=== PATIENT | male | born 1950 | race African-American/Black ===

== ENCOUNTER 2017-07-16 20:36 | Emergency (ER) | payer MEDICARE, OTHER ==
[~2017-07-16] VITALS: Ht 180.3 cm; Wt 68.0 kg
[~2017-07-16 20:36] MED LIST: NKM
[2017-07-16] MEDS ORDERED: Thiamine HCl 100 MG in D5W 55 ML IVPB ONE (21:00)
[2017-07-16] MEDS ORDERED: Thiamine HCl 100mg/ml 2 ml Inj ONE (21:31)
[2017-07-16 21:36] LABS: BASOPHILS % (AUTO) 1.5 % (0.0-2.0); LYMPHOCYTES % (AUTO) 34.1 % (20.0-45.0); MEAN CORPUSCULAR HEMOGLOBIN 36.9 PG (27.0-31.0); MEAN CORPUSCULAR VOLUME 109 FL (80-99); MEAN PLATELET VOLUME 4.8 FL (6.5-10.1); MONOCYTES % (AUTO) 17.5 % (1.0-10.0); PLATELET COUNT 215 K/UL (150-450); RED BLOOD COUNT 3.52 M/UL (4.70-6.10); RED CELL DISTRIBUTION WIDTH 11.7 % (11.6-14.8); WHITE BLOOD COUNT 4.4 K/UL (4.8-10.8)
--- NOTE | 2017-07-16 21:58 | Emergency Room Report ---
History of Present Illness General Chief Complaint: Pain Source: Patient (Rudi Alvarez M.D.) Present Illness HPI 67 yo male with unknown pmhx p/w alcohol intoxication. Patient admits to drinking alcohol, cannot quantify amount. Denies other drug use. Currently denying any complaints. Denies history of trauma, headache, chest pain , sob, abd pain. (Rudi Alvarez M.D.) Allergies: Coded Allergies: No Known Allergies (Unverified , 07/16/17) Patient History Past Medical History: see triage record Past Surgical History: none Pertinent Family History: none Reviewed Nursing Documentation: PMH: Agreed, PSxH: Agreed (Rudi Alvarez M.D. ) Nursing Documentation-PMH Past Medical History: No Stated History (Rudi Alvarez M.D.) Review of Systems All Other Systems: negative except mentioned in HPI (Rudi Alvarez M.D.) Physical Exam Vital Signs Date Time Temp Pulse Resp B/P (MAP) Pulse Ox O2 Delivery O2 Flow Rate FiO2 07/16/17 20:21 97.5 92 16 84/59 94 Room Air Sp02 EP Interpretation: reviewed, normal General Appearance: alert, other - Middle aged male, not in acute distress, intoxicated, however conversing in speaking complete sentences not appear to be in pain. Head: normocephalic, atraumatic - No hematoma or ecchymosis Eyes: bilateral eye normal inspection, bilateral eye PERRL, bilateral eye EOMI ENT: normal ENT inspection, normal pharynx, normal voice, moist mucus membranes Neck: normal inspection, full range of motion, supple Respiratory: normal inspection, lungs clear, normal breath sounds, no respiratory distress, no retraction, no wheezing, speaking full sentences, chest symmetrical Cardiovascular #1: normal inspection, regular rate, rhythm, no edema, normal capillary refill Cardiovascular #2: 2+ radial (R), 2+ radial (L) Gastrointestinal: normal inspection, non tender, soft, non-distended, no guarding Genitourinary: no CVA tenderness Musculoskeletal: normal inspection, back normal, normal range of motion, non- tender, other - Full range of motion of all 4 extremities, there is no ecchymosis or edema, nontender throughout Neurologic: normal inspection, alert, responsive, motor strength/tone normal, sensory intact, normal gait, speech normal Psychiatric: other - Intoxicated Skin: normal inspection, normal color, no rash, warm/dry, well hydrated, normal turgor (Rudi Alvarez M.D.) Medical Decision Making Diagnostic Impression: Primary Impression: Alcohol intoxication Qualified Codes: F10.920 - Alcohol use, unspecified with intoxication, uncomplicated ER Course 67 yo M with alcohol intoxication denying any complaints. No signs of trauma Plan: Obtain labs, alcohol level. IV fluids ER course: Patient has remained stable during ED stay. Received fluids, ambulated to the bathroom with assistance, however still intoxicated Please note that this Emergency Department Report was dictated using [employer] technology software, occasionally this can lead to erroneous entry secondary to interpretation by the dictation equipment Signed out patient to Dr. Turner -67 yo M with alcohol intoxication -DC when sober (Rudi Alvarez M.D.) ER Course Patient signed out to me. Patient came in complaining of generalized pain and is very intoxicated. He slept the night. He is awake now walking to the bathroom without any difficulty. Because it's in the middle of the night blood him sleep here in the morning. He does not want social service for placement. No fracture for 5150. We'll discharge home. (ROSHNI TURNER M.D.) Last Vital Signs Date Time Temp Pulse Resp B/P (MAP) Pulse Ox O2 Delivery O2 Flow Rate FiO2 07/16/17 20:21 97.5 92 16 84/59 94 Room Air (Rudi Alvarez M.D.) Status: improved (ROSHNI TURNER M.D.) Disposition: HOME, SELF-CARE Condition: Stable Additional Instructions: Followup with your 7 days. Abstain from alcohol. Return if worse. Rudi Alvarez M.D. Jul 16, 2017 21:57 ROSHIN TURNER M.D. Jul 17, 2017 00:55
[2017-07-16 22:06] VITALS: BP 106/69
[2017-07-16 22:07] LABS: ALBUMIN/GLOBULIN RATIO 0.8 (1.0-2.7); CALCIUM 8.9 mg/dL (8.6-10.2); CREATININE 1.5 mg/dL (0.7-1.2); POTASSIUM 4.1 mEQ/L (3.4-4.9); TOTAL PROTEIN 7.9 g/dL (6.6-8.7)
[2017-07-17 00:15] VITALS: BP 110/70
[2017-07-17 01:20] VITALS: BP 105/75
[2017-07-17 01:30] VITALS: BP 105/75
--- NOTE | 2017-07-17 09:54 | Diagnostic Imaging Report ---
Indication: PAIN Technique: One view of the chest Comparison: none Findings: The heart is enlarged. Lungs and pleural spaces are clear. Impression: No acute process
== END 2017-07-17 01:30 | disposition home or self-care (01) ==
LOC: EDBD 20:36 → EMR 21:00
DX: F10.920 Alcohol use, unspecified with intoxication, uncomplicated (principal); I51.7 Cardiomegaly; R07.9 Chest pain, unspecified
CPT/HCPCS: 36415; 71010; 80053; 85025; 96360; 99284; G0480; 80329